=== PATIENT | male | born 1940 | race Caucasian/White ===

== ENCOUNTER 2022-07-24 08:56 | Emergency (ER) | payer OTHER ==
[2022-07-24] MEDS ORDERED: Cipro500 MG PO (12:29)
== END 2022-07-24 14:02 | disposition home or self-care (01) ==
DX: N39.0 Urinary tract infection, site not specified (principal); N40.1 Benign prostatic hyperplasia with lower urinary tract symptoms; R33.8 Other retention of urine

== ENCOUNTER → 2022-07-27 | Outpatient (CLI) | payer OTHER ==
[~2022-07-27] MED LIST: Cipro500 MG PO
[2022-07-28 11:27] LABS: Stool Occult Bld Immuno 1 Positive (NEGATIVE); Stool Occult Bld Immuno 2 Positive (NEGATIVE)
== END | disposition home or self-care (01) ==
LOC: LAB SHORT 12:00 → LAB FUT 07-21 11:55
PROVIDERS: Internal Medicine
DX: D64.9 Anemia, unspecified (principal)
CPT/HCPCS: G0328

== ENCOUNTER → 2022-12-17 | Outpatient (CLI) | payer OTHER ==
[~2022-12-17] MED LIST changes: +CEFD300 PO; +FINA5 PO; +Hytrin1 MG PO
[2022-12-17 15:41] LABS: BASOPHILS ABSOLUTE AUTO 0.03 K/mm3 (0.00-0.23); BASOPHILS PERCENT AUTO 1 % (0-2); EOSINOPHILS ABSOLUTE AUTO 0.09 K/mm3 (0.00-0.68); EOSINOPHILS PERCENT AUTO 2 % (0-6); Hematocrit 38.6 % (37.0-53.0); Hemoglobin 12.9 g/dL (13.5-17.5); IMMATURE GRAN ABSOLUTE AUTO 0.03 K/mm3 (0.00-0.10); IMMATURE GRAN PERCENT AUTO 1 % (0-1); LYMPHOCYTES ABSOLUTE AUTO 1.41 K/mm3 (0.84-5.20); LYMPHOCYTES PERCENT AUTO 24 % (21-46); MONOCYTES ABSOLUTE AUTO 0.56 K/mm3 (0.16-1.47); MONOCYTES PERCENT AUTO 10 % (4-13); Mean Corpuscular HGB 31.6 pg (26.0-34.0); Mean Corpuscular HGB Conc 33.4 g/dL (31.5-36.5); Mean Corpuscular Volume 95 fL (80-100); Mean Platelet Volume 9.9 fL (9.1-12.4); NEUTROPHILS ABSOLUTE AUTO 3.78 K/mm3 (1.96-9.15); NEUTROPHILS PERCENT AUTO 64 % (41-73); Platelet Count 175 K/mm3 (150-400); RDW Coefficient Variation 13.4 % (11.7-14.2); RDW Standard Deviation 46.7 fL (35.1-46.3); Red Blood Cell Count 4.08 M/mm3 (4.30-5.90)
== END | disposition home or self-care (01) ==
LOC: LAB 12:17 → LAB SHORT 12:17 → LAB FUT 07-27 15:25
PROVIDERS: Physician Assistant
DX: R19.5 Other fecal abnormalities (principal); E55.9 Vitamin D deficiency, unspecified
CPT/HCPCS: 36415; 82306; 82728; 85025

== ENCOUNTER → 2023-02-02 | Outpatient (CLI) | payer OTHER ==
[2023-02-02 14:29] LABS: Source, Urine Clean Catch
[2023-02-02 15:21] LABS: Appearance, Urine Clear (Clear); Bilirubin, Urine Neg (Neg); Blood, Urine 1+ (Neg); Color, Urine Yellow (P-Yellow); Glucose Qualitative, Urine Neg (Neg); Ketones, Urine Neg (Neg); Leukocyte Esterase, Urine 3+ (Neg); Nitrite, Urine Neg (Neg); Protein, Urine Neg (Neg); Specific Gravity, Urine 1.015 (1.003-1.022); Urobilinogen, Urine NORM (Normal)
[2023-02-02 15:40] LABS: Bacteria Many /hpf; Squamous Epithelial Cells Not Seen /hpf (Few); White Blood Cells, Urine 50-100 /hpf (0-5)
== END | disposition home or self-care (01) ==
LOC: LAB 14:28 → LAB SHORT 14:28 → LAB FUT 02-01 10:15 → EDSTATUS 02-01 10:15
PROVIDERS: Urology
DX: N39.0 Urinary tract infection, site not specified (principal)
CPT/HCPCS: 81001; 87077; 87086; 87186

== ENCOUNTER 2024-06-25 14:14 | Inpatient (IN) | payer OTHER ==
[~2024-06-25] VITALS: Ht 182.9 cm; Wt 74.0 kg
[2024-06-25 15:22] LABS: BASOPHILS ABSOLUTE AUTO 0.03 K/mm3 (0.00-0.23); BASOPHILS PERCENT AUTO 0 % (0-2); EOSINOPHILS ABSOLUTE AUTO 0.07 K/mm3 (0.00-0.68); EOSINOPHILS PERCENT AUTO 1 % (0-6); Hematocrit 38.2 % (37.0-53.0); Hemoglobin 12.9 g/dL (13.5-17.5); IMMATURE GRAN ABSOLUTE AUTO 0.04 K/mm3 (0.00-0.10); IMMATURE GRAN PERCENT AUTO 1 % (0-1); LYMPHOCYTES ABSOLUTE AUTO 1.65 K/mm3 (0.84-5.20); LYMPHOCYTES PERCENT AUTO 22 % (21-46); MONOCYTES ABSOLUTE AUTO 0.59 K/mm3 (0.16-1.47); MONOCYTES PERCENT AUTO 8 % (4-13); Mean Corpuscular HGB 32.3 pg (26.0-34.0); Mean Corpuscular HGB Conc 33.8 g/dL (31.5-36.5); Mean Corpuscular Volume 96 fL (80-100); Mean Platelet Volume 10.1 fL (9.1-12.4); NEUTROPHILS PERCENT AUTO 68 % (41-73); Platelet Count 160 K/mm3 (150-400); RDW Coefficient Variation 13.2 % (11.7-14.2); RDW Standard Deviation 46.6 fL (35.1-46.3); Red Blood Cell Count 3.99 M/mm3 (4.30-5.90); White Blood Cell Count 7.38 K/mm3 (4.00-11.30)
[2024-06-25 15:26] LABS: Albumin, Blood 3.3 g/dL (3.4-5.0); Bilirubin, Total 0.7 mg/dL (0.1-1.0); Bun/Creatinine Ratio 19.2 (12.0-20.0); Calcium, Blood 8.9 mg/dL (8.5-10.1); Creatinine, Blood 0.83 mg/dL (0.60-1.20); Globulin, Blood 3.4 g/dL (2.2-4.0); Potassium, Blood 4.1 mmol/L (3.5-5.5); Total Protein, Blood 6.7 g/dL (6.4-8.2)
[2024-06-25] MEDS ORDERED: FLU VACC TS2024-25(6MOS UP)/PF 45 MCG/0.5 ML SYRINGE IM SCH (16:40)
[2024-06-25 19:00] VITALS: BP 132/90
[2024-06-25] MEDS ORDERED: Latanoprost 0.005% Opth Soln 2.5 ML BOTHEYES SCH (21:00)
[2024-06-25] MEDS ORDERED: MIRALAX17 GM PO (21:29)
[2024-06-25] MEDS ORDERED: LATA.005SO BOTHEYES (21:29)
[2024-06-25 23:40] VITALS: BP 105/53
[2024-06-26 04:00] VITALS: BP 120/69
[2024-06-26 04:28] LABS: Hematocrit 34.2 % (37.0-53.0); Hemoglobin 11.4 g/dL (13.5-17.5); Mean Corpuscular HGB 31.7 pg (26.0-34.0); Mean Corpuscular HGB Conc 33.3 g/dL (31.5-36.5); Mean Corpuscular Volume 95 fL (80-100); Mean Platelet Volume 9.9 fL (9.1-12.4); Platelet Count 155 K/mm3 (150-400); RDW Coefficient Variation 13.2 % (11.7-14.2); RDW Standard Deviation 45.8 fL (35.1-46.3); White Blood Cell Count 6.62 K/mm3 (4.00-11.30)
[2024-06-26 05:00] LABS: Bun/Creatinine Ratio 19.7 (12.0-20.0); Calcium, Blood 8.4 mg/dL (8.5-10.1); Creatinine, Blood 0.92 mg/dL (0.60-1.20); Potassium, Blood 4.1 mmol/L (3.5-5.5)
--- NOTE | 2024-06-26 06:04 | NUR ---
SHIFT SUMMARY PATIENT ALERT AND ORIENTED X4. HAD NO COMPLAINTS OF PAIN OR SHORTNESS OF BREATH. ON ROOM AIR WITH SPO2 >90%. NO CHANGES IN HEART RHYTHM OVERNIGHT WITH RATE IN THE 30'S-40'S WHILE SLEEPING. PATIENT DENIES BEING LIGHT HEADED OR DIZZY. NO ACUTE ISSUES NOTED OVERNIGHT. WILL CONTINUE TO MONITOR. CALL LIGHT WITHIN REACH.
[2024-06-26 07:40] VITALS: BP 112/72
[2024-06-26] MEDS ORDERED: Finasteride 5 MG Tab PO SCH (09:00)
[2024-06-26 11:35] VITALS: BP 123/60
[2024-06-26] MEDS ORDERED: Heparin Sodium 1000 Units/ML 10ML MDV ONE (14:45)
[2024-06-26] MEDS ORDERED: NS 1,000 ML IV ONE ×2 (14:45→15:07)
[2024-06-26] MEDS ORDERED: CeFAZolin Sodium 1000 mg Vial ONE (14:45)
[2024-06-26] MEDS ORDERED: CeFAZolin Sodium 2,000 MG VIAL ONE (15:07)
[2024-06-26] MEDS ORDERED: NS 100 ML IV ONE (15:07)
[2024-06-26] MEDS ORDERED: Midazolam HCl 1MG / ML 2ML Vial ONE (15:37)
[2024-06-26] MEDS ORDERED: FentaNYL Citrate 50 MCG/ML 2 ML Injection ONE (15:38)
[2024-06-26] MEDS ORDERED: HYDROcodone 5-APAP 325 TAB PO PRN (18:10)
--- NOTE | 2024-06-26 18:29 | NUR ---
SHIFT SUMMARY PT A&O X4, TO SELF, , TIME, SITUATION, AND PLACE, ABLE TO MAKE NEEDS KNOWN, OBEYS COMMANDS, FORGETFUL AT TIMES. HR 30-50'S T/O MOST OF SHIFT, BP STABLE. LUNGS CLEAR WITH SPO2 GREATHER THEN 95% ON RA. PT WALKING IN ROOM TO BRP, STABLE ON FEET. PT NPO ALL MORNING DUE TO PROCEDURE. DR. ANITHA VUNED ON PT @ APROX 1130, CARE ON GOING PT TAKEN BACK FOR PROCEDURE @ APPROX 1430. CARDIOLOGY CAME TO ROOM AND SPOKE TO @ APPROX 1730, PT RETURNED TO RROM SHORTLY AFTER, PT HAD INCONINENT EPISODE, PT PLACED IN SLING REMINDER TO NOT USE LEFT ARM, PACER SITE SOFT, NO SIGNS OF INFECTION OR HEMATOMA, DRESSING C/D/I, HR NOW 80'S IN PACED RHYTHM. PLAN OF CARE ONGOING, CALL LIGHT IN REACH, AT BEDSIDE, AWAITING TO GIVE REPORT TO COMING RN.
[2024-06-26 18:40] VITALS: BP 139/91
[2024-06-26 20:28] VITALS: BP 119/55
[2024-06-26] MEDS ORDERED: NS 250 ML IV PRN (23:15)
[2024-06-26] MEDS ORDERED: CeFAZolin Sodium 2,000 MG in NS 100 ML IV SCH (23:30)
[2024-06-27 00:03] VITALS: BP 112/64
[2024-06-27 05:14] VITALS: BP 151/87
--- NOTE | 2024-06-27 06:27 | NUR ---
SHIFT SUMMARY PATIENT ALERT AND ORIENTED X4. HAD SOME PAIN IN THE PACER PLACEMENT SITE, PLACED AN ICE PACK OVER THE AREA AND PATIENT HAD NO ADDITIONAL COMPLAINTS OF PAIN. PATIENT ON ROOM AIR WITH SPO2 >90%. VITAL SIGNS STABLE, PACED ON TELE. LEFT ARM IN SLING. NO ACUTE ISSUES NOTED OVERNIGHT. WILL CONTINUE TO MONITOR. CALL LIGHT WITHIN REACH.
--- NOTE | 2024-06-27 07:37 | NUR ---
NURSE NOTE ASSUMED CARE AT 0700. PACE MAKER INTERROGATED THIS AM, PATIENT LEFT ARM IN A SLING. PATIENT TRANSFERED TO WHEEL CHAIR AND WHEELED TO IMAGINING FOR CHEST XRAY. PATIENT OUT OF ROOM AT THIS TIME.
[2024-06-27 08:00] VITALS: BP 135/72
[2024-06-27 11:47] VITALS: BP 118/77
--- NOTE | 2024-06-27 14:20 | NUR ---
NURSE NOTE PATIENT CLEARED BY CARDIOLOGY. CALLED DR. WELSH TO UPDATE. AT BEDSIDE, CALL LIGHT IN REACH.
[2024-06-27] MEDS ORDERED: Norco 5-325 Ta1 EACH PO (14:40)
--- NOTE | 2024-06-27 15:16 | NUR ---
NURSE NOTE PATIENT DISCHARGE PACKET WENT OVER WITH PATIENT AND . PERSONAL BELONGINGS GATHERED AND GIVEN TO . PATIENT ASSITED INTO WHEELCHAIR AND WHEELED DOWN TO CAR.
== END 2024-06-27 15:23 | disposition home or self-care (01) | DRG 244 ==
LOC: ER 14:14 → ERHOLD 16:39 → PCU 16:39
PROVIDERS: Student in an Organized Health Care Education/Training Program; ADMIT Internal Medicine
PROC: 0JH606Z Insertion of Pacemaker, Dual Chamber into Chest Subcutaneous Tissue and Fascia, Open Approach (ICD-10-PCS; principal; 2024-06-26)
PROC: 02H63JZ Insertion of Pacemaker Lead into Right Atrium, Percutaneous Approach (ICD-10-PCS; 2024-06-26)
PROC: 02HK3JZ Insertion of Pacemaker Lead into Right Ventricle, Percutaneous Approach (ICD-10-PCS; 2024-06-26)
DX: I44.1 Atrioventricular block, second degree (principal); G30.9 Alzheimer's disease, unspecified; F02.A0 Dementia in other diseases classified elsewhere, mild, without behavioral disturbance, psychotic disturbance, mood disturbance, and anxiety; Z66 Do not resuscitate; E78.5 Hyperlipidemia, unspecified; N40.0 Benign prostatic hyperplasia without lower urinary tract symptoms; H90.5 Unspecified sensorineural hearing loss; H40.9 Unspecified glaucoma; Z98.890 Other specified postprocedural states; Z87.891 Personal history of nicotine dependence
CPT/HCPCS: 33208; 36415; 71046; 80048; 80053; 83735; 84439; 84443; 84481; 84484; 85025; 85027; 93005; 93010; 99152; 99153; 99285-25; A9270; C1785; C1898; J0690; J1644; J2250; J3010; J7030; J7040; J7050; Q9967

== ENCOUNTER 2025-05-14 10:48 | Emergency (ER) | payer OTHER ==
[~2025-05-14] VITALS: Ht 182.9 cm; Wt 73.5 kg
[~2025-05-14 10:48] MED LIST changes: +LATA.005SO BOTHEYES; +MIRALAX17 GM PO; +Norco 5-325 Ta1 EACH PO
[2025-05-14 11:27] LABS: BASOPHILS ABSOLUTE AUTO 0.03 K/mm3 (0.00-0.23); BASOPHILS PERCENT AUTO 1 % (0-2); EOSINOPHILS ABSOLUTE AUTO 0.15 K/mm3 (0.00-0.68); EOSINOPHILS PERCENT AUTO 3 % (0-6); Hematocrit 36.6 % (37.0-53.0); Hemoglobin 12.7 g/dL (13.5-17.5); IMMATURE GRAN ABSOLUTE AUTO 0.03 K/mm3 (0.00-0.10); IMMATURE GRAN PERCENT AUTO 1 % (0-1); LYMPHOCYTES ABSOLUTE AUTO 1.13 K/mm3 (0.84-5.20); LYMPHOCYTES PERCENT AUTO 20 % (21-46); MONOCYTES ABSOLUTE AUTO 0.51 K/mm3 (0.16-1.47); MONOCYTES PERCENT AUTO 9 % (4-13); Mean Corpuscular HGB Conc 34.7 g/dL (31.5-36.5); Mean Corpuscular Volume 94 fL (80-100); NEUTROPHILS ABSOLUTE AUTO 3.90 K/mm3 (1.96-9.15); NEUTROPHILS PERCENT AUTO 68 % (41-73); NRBC ABSOLUTE 0.00 K/mm3 (0.00-0.02); NRBC Auto 0.0 /100 WBC (0.0-0.2); Platelet Count 154 K/mm3 (150-400); RDW Coefficient Variation 13.3 % (11.7-14.2); RDW Standard Deviation 45.6 fL (35.1-46.3)
[2025-05-14 12:02] LABS: Alanine Aminotransfer (ALT/SGP 10.0 U/L (12-78); Albumin, Blood 3.5 g/dL (3.4-5.0); Albumin/Globulin Ratio 1.0 (0.8-1.8); Anion Gap 8.0 mmol/L (3-11); Aspartate Aminotrans (AST/SGOT 12.0 U/L (12-37); Bilirubin, Total 0.7 mg/dL (0.1-1.0); Blood Urea Nitrogen 14.0 mg/dL (8-24); CO2, Blood 26.0 mmol/L (21-32); Calcium, Blood 8.4 mg/dL (8.5-10.1); Chloride, Blood 105.0 mmol/L (98-108); Creatinine, Blood 0.79 mg/dL (0.60-1.20); Globulin, Blood 3.4 g/dL (2.2-4.0); Glucose, Blood 112.0 mg/dL (70-99); Potassium, Blood 4.0 mmol/L (3.5-5.5); Sodium, Blood 135.0 mmol/L (136-145); Thyroid Stimulating Hormone 2.14 uIU/mL (0.360-4.800); Total Protein, Blood 6.9 g/dL (6.4-8.2)
[2025-05-14 13:41] LABS: Source, Urine Voided
[2025-05-14 13:49] LABS: Bilirubin, Urine Neg (Neg); Color, Urine Yellow (P-Yellow); Glucose Qualitative, Urine Neg (Neg); Ketones, Urine Neg (Neg); Leukocyte Esterase, Urine 3+ (Neg); Protein, Urine 1+ (Neg); Specific Gravity, Urine 1.015 (1.003-1.022); Urobilinogen, Urine NORM (Normal)
[2025-05-14 13:55] LABS: White Blood Cells, Urine 25-50 /hpf (0-5)
[2025-05-14] MEDS ORDERED: ESCI20 (14:49)
[2025-05-14 15:30] VITALS: BP 125/71
[2025-05-14] MEDS ORDERED: CEPH500 PO (16:05)
== END 2025-05-14 16:37 | disposition home or self-care (01) ==
LOC: ER 10:48
PROVIDERS: Emergency Medicine
DX: N39.0 Urinary tract infection, site not specified (principal); Z79.899 Other long term (current) drug therapy; E78.5 Hyperlipidemia, unspecified
CPT/HCPCS: 80053; 81001; 84443; 84484; 85025; 87077; 87086; 87186; 93005; 93010; 99283-25; A9270